=== PATIENT | female | born 1965 | race African-American/Black ===

== ENCOUNTER 2019-12-13 11:24 | Emergency (ER) | payer OTHER ==
[~2019-12-13] VITALS: Ht 170.2 cm; Wt 56.8 kg
[2019-12-13] MEDS ORDERED: VOLTAREN1%GEL TOP (12:58)
[2019-12-13] MEDS ORDERED: CYCLOBENZAPR5 MG PO (12:58)
[2019-12-13 13:41] VITALS: BP 118/74
== END 2019-12-13 13:41 | disposition home or self-care (01) | DRG 552 ==
LOC: ED 11:24
DX: M62.830 Muscle spasm of back (principal); I48.91 Unspecified atrial fibrillation